=== PATIENT | female | born 2000 | race Two or more races ===

== ENCOUNTER 2024-10-18 11:42 | Observation (INO) | payer MEDICAID ==
[~2024-10-18] VITALS: Ht 157.5 cm; Wt 68.0 kg
[2024-10-18 12:32] LABS: Basophils # (auto) 0 10 ^3/uL (0-0.2); Basophils % (auto) 0.2 % (0.0-2.0); Eosinophils # (auto) 0.1 10 ^3/uL (0-0.8); Hematocrit 36.7 % (36.0-46.0); Hemoglobin 12.9 g/dL (12.2-16.2); Lymphocytes % (auto) 20.8 % (10.0-50.0); Mean Corpuscular Hemoglobin 31.8 pg (28.0-32.0); Mean Corpuscular Hgb Conc. 35.2 g/dL (32.0-36.0); Mean Corpuscular Volume 90.4 fL (80.0-100.0); Monocytes # (auto) 0.7 10 ^3/uL (0-1.3); Monocytes % (auto) 6.8 % (0.0-12.0); Neutrophils % (auto) 71.2 % (37.0-80.0); Platelet Count (auto) 201 10^3/uL (140-450); Red Blood Cells 4.06 10^6/uL (4.0-5.20); Red Cell Distribution Width 13.8 % (11.8-14.3); White Blood Cell 9.8 10^3/uL (4.4-10.8)
--- NOTE | 2024-10-18 12:33 | DVH ---
Procedure: US BIOPHYSICAL PROFILE 10/18/2024 12:15 PM Indication: cholestasis Comparison: None Technique: Sonogram of gravid uterus utilizing grayscale and color techniques. FINDINGS: Single living intrauterine gestation. Presentation: Cephalic Placenta: Anterior, no previa or abruption heart rate: 149 bpm SAHIL: 11.2 cm, DVP: 4.4 cm Maternal cervix: Not visualized Biophysical Profile: breathing score: 2 movement score: 2 tone: 2 Quantitative SAHIL score: 2 Total score: 8/8 IMPRESSION: 1. Single living as above. 2. Biophysical profile score: 8/8.
[2024-10-18 12:43] LABS: Urine Bacteria FEW /hpf (None Seen); Urine Blood Negative /uL (Negative); Urine Clarity Turbid (Clear); Urine Color Light-Yellow (Yellow); Urine Protein, UAD Negative (Negative); Urine Specific Gravity 1.007 (1.001-1.035); Urine Urobilinogen Normal (Negative); Urine WBC 2 /hpf (0 - 5); Urine pH 5.5 (5.0-9.0)
[2024-10-18 12:45] LABS: Albumin 3.9 g/dL (3.2-4.8); Alkaline Phosphatase 149 U/L (46-116); Anion Gap 9 (5-15); Aspartate Aminotransferase 15 U/L (13-40); BUN/Creatinine Ratio 11.9 (10.0-20.0); Blood Urea Nitrogen 7 mg/dL (9-23); Calcium 9.7 mg/dL (8.7-10.4); Carbon Dioxide 21 mmol/L (20-31); Chloride 110 mmol/L (98-107); Glucose 76 mg/dL (74-106); Potassium 3.6 mmol/L (3.5-5.1); Sodium 140 mmol/L (136-145)
[2024-10-18 12:46] LABS: Bilirubin, Total 0.6 mg/dL (0.2-1.0); Total Protein 6.1 g/dL (5.7-8.2)
[2024-10-18 13:12] LABS: Alanine Aminotransferase 20 U/L (7-40)
--- NOTE | 2024-10-18 18:58 | DVHDS2 ---
Physician Discharge Progress N Final Diagnosis: polymorphic eruption of (PEP) Operations or Procedures: Operations or Procedures 24yo IUP@34.3wks, pt sent from Dr. El's office with c/o itching from chest down (torso to BLE). Denies itching in palms of hands and soles of feet. PNC with Dr. El, uncomplicated. +FM, denies UCs/LOF/VB. Pt reports only drinking coffee today. VSS UA wnl NST reactive TOCO: uterine irritability noted PO hydrated BPP wnl Bile acids ordered FKC/PTL precautions reviewed. Use hydrocortisone cream for itching Dr. El consulted, agrees with POC. f/[facility] Laboratory Tests Test 10/18/24 11:45 10/18/24 12:11 Range/Units Urine Color Light-yellow Yellow Urine Clarity Turbid H Clear Urine pH 5.5 5.0-9.0 Urine Specific [place] 1.007 1.001-1.035 Urine Protein Negative Negative Urine Ketones Negative Negative Urine Blood Negative Negative /uL Urine Nitrite Negative Negative Urine Bilirubin Negative Negative Urine Urobilinogen Normal Negative mg/dL Urine Leukocyte Esterase 1+ Negative /uL Urine RBC 3 0 - 4 /hpf Urine WBC 2 0 - 5 /hpf Urine Squamous Epithelial Cells Few <5 /hpf Urine Bacteria Few H None Seen /hpf Urine Glucose Normal Normal mg/dL White Blood Count 9.8 4.4-10.8 10^3/uL Red Blood Count 4.06 4.0-5.20 10^6/uL Hemoglobin 12.9 12.2-16.2 g/dL Hematocrit 36.7 36.0-46.0 % Mean Corpuscular Volume 90.4 80.0-100.0 fL Mean Corpuscular Hemoglobin 31.8 28.0-32.0 pg Mean Corpuscular Hemoglobin Concent 35.2 32.0-36.0 g/dL Red Cell Distribution Width 13.8 11.8-14.3 % Platelet Count 201 140-450 10^3/uL Mean Platelet Volume 7.7 6.9-10.8 fL Neutrophils (%) (Auto) 71.2 37.0-80.0 % Lymphocytes (%) (Auto) 20.8 10.0-50.0 % Monocytes (%) (Auto) 6.8 0.0-12.0 % Eosinophils (%) (Auto) 1.0 0.0-7.0 % Basophils (%) (Auto) 0.2 0.0-2.0 % Neutrophils # (Auto) 7.0 1.6-8.6 10 ^3/uL Lymphocytes # (Auto) 2.0 0.4-5.4 10 ^3/uL Monocytes # (Auto) 0.7 0-1.3 10 ^3/uL Eosinophils # (Auto) 0.1 0-0.8 10 ^3/uL Basophils # (Auto) 0 0-0.2 10 ^3/uL Nucleated Red Blood Cells 0.0 % Miscellaneous Referred Test (Refrg) Sent to [facility] Sodium Level 140 136-145 mmol/L Potassium Level 3.6 3.5-5.1 mmol/L Chloride Level 110 H 98-107 mmol/L Carbon Dioxide Level 21 20-31 mmol/L Anion Gap 9 5-15 Blood Urea Nitrogen 7 L 9-23 mg/dL Creatinine 0.59 0.550-1.02 mg/dL Glomerular Filtration Rate Calc 128 >90 mL/min BUN/Creatinine Ratio 11.9 10.0-20.0 Serum Glucose 76 74-106 mg/dL Calcium Level 9.7 8.7-10.4 mg/dL Total Bilirubin 0.6 0.2-1.0 mg/dL Aspartate Amino Transferase (AST) 15 13-40 U/L Alanine Aminotransferase (ALT) 20 7-40 U/L Alkaline Phosphatase 149 H 46-116 U/L Total Protein 6.1 5.7-8.2 g/dL Albumin 3.9 3.2-4.8 g/dL Condition on Discharge: Stable Disposition: Home Discharge Instructions: Diet: Regular Activity: No Restrictions, As Tolerated Medications: see med list Follow Up Care: Specialist: f/[facility] Discharge Statement: "Patient was advised to return to the ER or call 911 if any headaches, dizziness, shortness of breath, chest pain, abdominal pain, bleeding, fevers, or worsening of medical condition. Patient was counseled about treatment plan, medications, possible side effects, patientverbalized understanding. All questions were answered to the best of my ability. This discharge took greater then 30 minutes in planning, reviewing documentation, counseling the patient, and discussing with other team members." PEREZ JOHNS [facility] Oct 18, 2024 18:58
== END 2024-10-18 13:18 | disposition home or self-care (01) ==
LOC: UNDOADMOB 11:42 → LDRP 11:42 → UNDODISOB 13:18
PROVIDERS: ADMIT Obstetrics & Gynecology; ATTEND Obstetrics & Gynecology
DX: O26.893 Other specified pregnancy related conditions, third trimester (principal); L29.9 Pruritus, unspecified; Z3A.34 34 weeks gestation of pregnancy
CPT/HCPCS: 36415; 59025; 76818; 80053; 81001; 81002; 85025; 94760; G0378

== ENCOUNTER 2024-10-25 12:38 | Observation (INO) | payer MEDICAID ==
[~2024-10-25] VITALS: Ht 162.6 cm; Wt 63.5 kg
--- NOTE | 2024-10-25 13:58 | DVH ---
BIOPHYSICAL PROFILE HISTORY: R/O mohan TECHNIQUE: Multiple transabdominal real-time grayscale sonographic images through the gravid uterus of the fetus with duplex Doppler color flow and M-mode spectral analysis FINDINGS: BIOPHYSICAL PROFILE: breathing score: 2 movement score: 2 tone score: 2 Quantitative SAHIL score: 2 (SAHIL: 10.7 Cm.) Total score: 8/8 Single live fetus in cephalic presentation. heart rate 130 beats per minute. Anterior placenta without previa or abruption IMPRESSION: 1. Biophysical profile score: 8/8 HS:Y
[2024-10-25] MEDS ORDERED: LACTATED RINGER'S 1,000 ML IV ONE (14:15)
[2024-10-25] MEDS ORDERED: NIFEdipine ER 30 MG TAB PO ONE (15:00)
[2024-10-25] MEDS: BETAMETHASONE ACET (30mg/5ml) 5ml Vial 6mg/ml IM ONE (15:28)
[2024-10-25] MEDS: TERBUTALINE SULFATE 1 MG/ML 1ML VIAL SC SCH (15:48)
[2024-10-25] MEDS ORDERED: NIFE10CA52 PO (16:16)
--- NOTE | 2024-10-25 19:34 | DVHDS2 ---
Physician Discharge Progress N Final Diagnosis: PTL Secondary Diagnosis: ruled out for cholestasis Operations or Procedures: Operations or Procedures S: 24yo IUP@35.3wks here for testing. Denies UCs/LOF/VB/BEDOLLA/vision changes/RUQ pain. Endorses +FM. Pt denies itching after switching laundry detergent from last week. O: VSS NST reactive TOCO: regular UCs initially that resolved with treatment Treated PTL with terbutaline SQ x2 and 1L LR IV bolus Betamethasone IM first dose given BPP wnl BIle acid labs reviewed, WNL Labs reviewed from last visit A: 24yo IUP@35.3wks PTL Ruled out for cholestasis P: FKC/PTL precautions reviewed Dr. El consulted, agrees with POC. Rx sent for procardia for pt to take until 36 wks. Condition on Discharge: Stable Disposition: Home Discharge Instructions: Diet: Regular Activity: No Restrictions, As Tolerated Medications: see med list Follow Up Care: Specialist: f/u on 10/26/24 Discharge Statement: "Patient was advised to return to the ER or call 911 if any headaches, dizziness, shortness of breath, chest pain, abdominal pain, bleeding, fevers, or worsening of medical condition. Patient was counseled about treatment plan, medications, possible side effects, patientverbalized understanding. All questions were answered to the best of my ability. This discharge took greater then 30 minutes in planning, reviewing documentation, counseling the patient, and discussing with other team members." PEREZ JOHNS CNM Oct 25, 2024 19:34
[2024-10-26] MEDS ORDERED: PREN-96 PO (16:03)
== END 2024-10-25 17:10 | disposition home or self-care (01) ==
LOC: LDRP 13:00
PROVIDERS: ADMIT Obstetrics & Gynecology; ATTEND Obstetrics & Gynecology
CPT/HCPCS: 59025 ×2; 76818 ×2; 81002 ×2; 94760 ×2; 96360 ×2; 96372 ×2; G0378; J0702; J3105

== ENCOUNTER 2024-10-26 15:13 | Observation (INO) | payer MEDICAID ==
[~2024-10-26] VITALS: Ht 157.5 cm; Wt 68.0 kg
[~2024-10-26 15:13] MED LIST: NIFE10CA52 PO
[2024-10-26] MEDS: BETAMETHASONE ACET (30mg/5ml) 5ml Vial 6mg/ml IM ONE (15:49)
[2024-10-26] MEDS ORDERED: PREN-96 PO (16:03)
--- NOTE | 2024-10-26 17:15 | DVHDS2 ---
Physician Discharge Progress N Final Diagnosis: second dose of betamethasone and NST for PTL Operations or Procedures: Operations or Procedures 24yo IUP@35.5wks presents for second dose of betamethasone, denies UCs/VB/LOF, +FM. taking procardia. VSS UA wnl NST reactive last 20 min (FHR 140, moderate variability, +accels, -decels) Second Dose of Betamethasone IM given FKC/PTL precautions given Dr. El consulted, agrees with POC. Condition on Discharge: Stable Disposition: Home Discharge Instructions: Diet: Regular Activity: Light activity Activity comment: pelvic rest Medications: see med list Follow Up Care: Specialist: f/u in 1 wk Discharge Statement: "Patient was advised to return to the ER or call 911 if any headaches, dizziness, shortness of breath, chest pain, abdominal pain, bleeding, fevers, or worsening of medical condition. Patient was counseled about treatment plan, medications, possible side effects, patientverbalized understanding. All questions were answered to the best of my ability. This discharge took greater then 30 minutes in planning, reviewing documentation, counseling the patient, and discussing with other team members." PEREZ JOHNS CNM Oct 26, 2024 17:15
== END 2024-10-26 15:40 | disposition home or self-care (01) ==
LOC: LDRP 15:13
PROVIDERS: ADMIT Obstetrics & Gynecology; ATTEND Obstetrics & Gynecology
DX: O60.03 Preterm labor without delivery, third trimester (principal); Z3A.35 35 weeks gestation of pregnancy; Z79.899 Other long term (current) drug therapy
CPT/HCPCS: 59025; 81002; 96372; G0378

== ENCOUNTER 2024-11-01 11:12 | Observation (INO) | payer MEDICAID ==
[~2024-11-01 11:12] MED LIST changes: +PREN-96 PO
--- NOTE | 2024-11-01 14:57 | DVHDS2 ---
Physician Discharge Progress N Final Diagnosis: NST for PTL Operations or Procedures: Operations or Procedures 24yo IUP@36.4wks, stopped procardia at 36wks VSS UA wnl NST reactive FKC/PTL precautions reviewed Condition on Discharge: Stable Disposition: Home Discharge Instructions: Diet: Regular Activity: No Restrictions, As Tolerated Medications: see med list Follow Up Care: Specialist: f/u with primary OB as scheduled Discharge Statement: "Patient was advised to return to the ER or call 911 if any headaches, dizziness, shortness of breath, chest pain, abdominal pain, bleeding, fevers, or worsening of medical condition. Patient was counseled about treatment plan, medications, possible side effects, patientverbalized understanding. All questions were answered to the best of my ability. This discharge took greater then 30 minutes in planning, reviewing documentation, counseling the patient, and discussing with other team members." PEREZ JOHNS CNM Nov 01, 2024 14:57
== END 2024-11-01 12:44 | disposition home or self-care (01) ==
LOC: LDRP 11:12 → UNDOADMOB 11:12 → LDRP 11:26 → UNDODISOB 12:44
PROVIDERS: ADMIT Obstetrics & Gynecology; ATTEND Obstetrics & Gynecology
DX: O60.03 Preterm labor without delivery, third trimester (principal); O26.893 Other specified pregnancy related conditions, third trimester; N89.8 Other specified noninflammatory disorders of vagina; Z3A.36 36 weeks gestation of pregnancy; Z79.899 Other long term (current) drug therapy
CPT/HCPCS: 59025; 81002; 94760; G0378

== ENCOUNTER 2024-11-24 23:17 | Inpatient (IN) | payer MEDICAID ==
[~2024-11-24] VITALS: Ht 157.5 cm; Wt 72.6 kg
[2024-11-25] VITALS (8 sets, daily range): BP systolic 126–140; BP diastolic 53–85; PULSE 92–106; RESP 18; O2SAT 95–100
--- NOTE | 2024-11-25 01:32 | DVH ---
OB ULTRASOUND, LIMITED CLINICAL INDICATION: POST DATES TECHNIQUE: Multiple grayscale ultrasound and M-mode images were obtained of the pelvis for evaluation of intrauterine . COMPARISON: US BIOPHYSICAL PROFILE on DOS: 10/25/24, US BIOPHYSICAL PROFILE on DOS: 10/18/24 FINDINGS: Biophysical profile: 07/07 breathin movements: 2 tone: 2 Amniotic fluid: 2 ( SAHIL 14.7 cm) heart rate: 153 beats per minute position: Cephalic Placenta location anterior IMPRESSION: Biophysical profile 07/07
--- NOTE | 2024-11-25 01:43 | DVHDS2 ---
PEREZ JOHNS [facility] Nov 25, 2024 01:43
[2024-11-25] MEDS ORDERED: miSOPROStol 50 MCG per PRE-CUT 1/2 TAB PO PRN (03:30)
[2024-11-25] MEDS ORDERED: LIDOCAINE 2%HCL (LOCAL ANESTH.) INJ 20ML MDV IJ PRN (03:30)
[2024-11-25] MEDS ORDERED: NALBUPHINE HCL 10 MG/1ml INJECTION IV PRN (03:30)
[2024-11-25 04:17] LABS: Alanine Aminotransferase 27 U/L (7-40); Albumin 3.9 g/dL (3.2-4.8); Anion Gap 11 (5-15); Aspartate Aminotransferase 25 U/L (13-40); BUN/Creatinine Ratio 12.7 (10.0-20.0); Blood Urea Nitrogen 9 mg/dL (9-23); Calcium 9.9 mg/dL (8.7-10.4); Carbon Dioxide 20 mmol/L (20-31); Potassium 3.5 mmol/L (3.5-5.1); Sodium 138 mmol/L (136-145)
[2024-11-25 04:18] LABS: Bilirubin, Total 0.8 mg/dL (0.2-1.0); Total Protein 6.2 g/dL (5.7-8.2)
[2024-11-25 04:31] LABS: Basophils # (auto) 0 10 ^3/uL (0-0.2); Basophils % (auto) 0.3 % (0.0-2.0); Eosinophils # (auto) 0.1 10 ^3/uL (0-0.8); Eosinophils % (auto) 0.5 % (0.0-7.0); Hematocrit 41.7 % (36.0-46.0); Hemoglobin 14.3 g/dL (12.2-16.2); Lymphocytes # (auto) 2.4 10 ^3/uL (0.4-5.4); Mean Corpuscular Hemoglobin 31.6 pg (28.0-32.0); Mean Corpuscular Hgb Conc. 34.3 g/dL (32.0-36.0); Mean Corpuscular Volume 92.3 fL (80.0-100.0); Monocytes # (auto) 0.6 10 ^3/uL (0-1.3); Neutrophils # (auto) 8.5 10 ^3/uL (1.6-8.6); Neutrophils % (auto) 73.2 % (37.0-80.0); Nucleated Red Blood Cells % 0.1 %; Platelet Count (auto) 207 10^3/uL (140-450); Red Blood Cells 4.52 10^6/uL (4.0-5.20); Red Cell Distribution Width 15.1 % (11.8-14.3); White Blood Cell 11.6 10^3/uL (4.4-10.8)
[2024-11-25 04:35] LABS: Alkaline Phosphatase 230 U/L (46-116); Chloride 107 mmol/L (98-107); Glucose 128 mg/dL (74-106)
[2024-11-25] MEDS: LACT. RINGERS/OXYTOCIN 20UNITS 500 ML IV ONE ×2 (04:45→05:15)
[2024-11-25 05:08] LABS: INR 0.97 (0.9-1.15); Partial Thromboplastin Time 28.5 SEC (24.5-34.5); Prothrombin Time 10.3 sec (9.3-11.8)
[2024-11-25] MEDS: LACTATED RINGER'S 1,000 ML IV SCH (05:12)
[2024-11-25] MEDS: PHISODERM TOP SOLN 240ML BTL TOP PRN (05:17)
[2024-11-25] MEDS: DERMOPLAST 60ML BOTTLE TOP PRN (05:20)
[2024-11-25] MEDS: WITCH HAZEL-GLYCERIN PAD TOP PRN (05:21)
[2024-11-25 05:29] LABS: Urine Amorphous Crystal FEW /hpf (None Seen); Urine Bacteria FEW /hpf (None Seen); Urine Blood 1+ /uL (Negative); Urine Clarity Clear (Clear); Urine Color Colorless (Yellow); Urine Protein, UAD Negative (Negative); Urine Specific Gravity 1.004 (1.001-1.035); Urine Squamous Epithelial Cell FEW /hpf (<5); Urine Urobilinogen Normal (Negative); Urine WBC 5 /hpf (0 - 5); Urine pH 5.5 (5.0-9.0)
[2024-11-25] MEDS: LIDOCAINE HCL 2 %PF INJ 10ML AMP IJ ONE (06:00)
[2024-11-25] MEDS: GUM (CHEWING) 1 GUM CHEW CHEW ONE (06:00)
[2024-11-25 06:03] LABS: Amphetamine Screen, Urine Neg (NEGATIVE); Barbiturate Scree,Urine Neg (NEGATIVE); Benzodiazephine Screen, Urine Neg (NEGATIVE); Cannabinoid Screen, Urine Neg (NEGATIVE); Cocaine Screen, Urine Neg (NEGATIVE); Opiate Scree,Urine Neg (NEGATIVE); Phencyclidine Screen, Urine Neg (NEGATIVE)
[2024-11-25] MEDS ORDERED: SODIUM CHLORIDE 0.9% 500 ML IV PRN (07:00)
[2024-11-25] MEDS ORDERED: LIDOCAINE HCL 2 %PF INJ 10ML AMP IJ ONE (07:00)
[2024-11-25] MEDS ORDERED: LACTATED RINGER'S 500 ML IV ONE (07:00)
[2024-11-25] MEDS ORDERED: LIDOCAINE 1%-Mpf/Epinephrine 1:200,000 30ml VIAL IJ ONE (07:00)
[2024-11-25] MEDS ORDERED: LIDOCAINE 2%HCL (LOCAL ANESTH.) INJ 10ml MDV IJ ONE (07:00)
[2024-11-25] MEDS ORDERED: NALOXONE HCL 0.4 MG/ML VIAL IV ONE (07:00)
[2024-11-25] MEDS ORDERED: ePHEDrine SULFATE 50 MG/ML AMP IV ONE (07:00)
[2024-11-25] MEDS ORDERED: Lidocaine W-Epinephrine 1.5%-1:200,000 INJ 10ml Vial IJ ONE (07:00)
--- NOTE | 2024-11-25 08:15 | DVHHP2 ---
OB CC & HPI Date Date of Admission: Nov 25, 2024 Patient Identification: : 1 Para: 0 EDC: Nov 25, 2024 EGA: 40wks Chief Complaints: Reason for admission: active labor Admission Nurse Assessment Rev: No History of Present Complaints pt is admitted for active labor,no rom or vag bleeding Past Medical History Cardiac: No pertinent Hx Pulmonary: No pertinent Hx Central Nervous System: No pertinent Hx GI: No pertinent Hx Hemotology/Oncology: No pertinent Hx Hepatobiliary: No pertinent Hx Psychiatric: No pertinent Hx Musculoskeletal: No pertinent Hx Rheumotologic: No pertinent Hx Infectious Disease: No peritnent Hx ENT: No pertinent Hx Renal/: No pertinent Hx Endocrine: No pertinent Hx Dermatology: No pertinent Hx Past Surgical History: No pertinent Hx OB History OB History Care: Good Care Ultrasounds: Normal mid trimester US Obstetrical Complications: None Medical Complications: None Allergies: Coded Allergies: NO KNOWN ALLERGIES (Unverified , 10/18/24) Home Meds Active Scripts Nifedipine (PROCARDIA CAPSULE) 10 Mg Cp, 10 MG PO Q6HR for 4 Days, #24 CAP take until [address] El Prov:PEREZ JOHNS CNM 10/25/24 Reported Medications Vit W/ Ferrous Fumara ( One Daily) Daily Tab, 1 TAB PO DAILY, #90 TAB 3 Refills 10/26/24 Current Medications Current Medications Medications (Trade) Dose Ordered Sig/Maldonado Route PRN Reason Start Time Stop Time Status Last Admin Lactated Ringer's 1,000 ml @ 125 mls/hr Q8H IV 11/25/24 03:30 11/25/24 05:12 Nalbuphine HCl (Nubain) 10 mg Q4HP PRN IV MODERATE PAIN (4-6 PAIN SCALE) 11/25/24 03:30 Witch Annette (Tucks) 1 pad PRN PRN TOP PERINEAL AREA DISCOMFORT 11/25/24 03:30 11/25/24 05:21 Sodium Lauryl Sulfate (Phisoderm) 240 ml PRN PRN TOP PERINEAL AREA DISCOMFORT 11/25/24 03:30 11/25/24 05:17 Benzocaine (Dermoplast) 1 applic PRN PRN TOP PERINEAL AREA DISCOMFORT 11/25/24 03:30 11/25/24 05:20 Misoprostol (Cytotec) 50 mcg Q4HPRN PRN PO CERVICAL RIPENING 11/25/24 03:30 Lidocaine HCl (Xylocaine) 40 ml ONCE PRN IJ PERINEAL AREA DISCOMFORT 11/25/24 03:30 Sodium Chloride 500 ml @ 500 mls/hr Q1H PRN IV FOR BP LESS THAN 90 11/25/24 07:00 Family & Social History Family/Social History Blood Type: Unknown Rubella: unknown RPR/VDRL: Negative GBS Status: Negative HBsAG: Negative Review of Systems Constitutional: No symptom reported Ears, Nose, & Throat: No symptom reported Eyes: No symptom reported Pulmonary/Respiratory: No symptom reported Cardiovascular: No symptom reported Gastrointestinal: No symptom reported Genitourinary: No symptom reported Musculoskeletal: No symptom reported Skin: No symptom reported Psychiatric: No symptom reported Endocrine: No symptom reported Hemotologic/Lymphatic: No symptom reported OB Admission Exam Physical Exam HEENT: TMs Normal, Fontanelles Normal, Nasal Mucosa Normal, Eyes non-injected, Oropharynx Normal, PERRLA, Moist Membranes, EOMI Heart: Rhythm Normal Lungs: Clear Abdomen: Non tender Extremities: Normal Reflexes: Normal Cervical Dilatation: 3cm Effacement: 75% Station: -2 Membranes: Intact Heart Rate: 130's Accelerations: Accelerations Present Decelerations: No Decelerations Short Term Variability: Present Banking Services Clerk Variability: Average (6-25) Contractions on Admission: < 5 Minutes Apart Intensity: Moderate OB Plan Plan Admitting Diagnosis: labor Plan: Expectant Management Other Plan: hurley ballon placed epidural given supportive care QIANA EL DO Nov 25, 2024 08:15
[2024-11-25] MEDS: ROPIVACAINE HCL ONE (09:43)
[2024-11-25] MEDS ORDERED: LACT. RINGERS/OXYTOCIN 20UNITS 1,000 ML IV SCH (13:30)
[2024-11-25] MEDS ORDERED: DOCU-94 PO (14:27)
[2024-11-25] MEDS ORDERED: IBUP-1456 PO (14:27)
[2024-11-25] MEDS ORDERED: HYDR-4072 PO (14:27)
[2024-11-25] MEDS ORDERED: LACTATED RINGER'S 1,000 ML IV SCH (14:45)
[2024-11-25] MEDS ORDERED: LACT. RINGERS/OXYTOCIN 20UNITS 1,000 ML IV ONE (15:00)
[2024-11-25] MEDS ORDERED: ceFAZolin 1GM/50ML 50 ML IV SCH (15:00)
[2024-11-25] MEDS ORDERED: ONDANSETRON HCL 4 MG/2 ML VIAL IV PRN ×2 (15:00→16:45)
[2024-11-25] MEDS ORDERED: MORPHINE SULF PF 5 MG/10 ML VIAL ONE (15:15)
[2024-11-25] MEDS ORDERED: fentaNYL CITRATE 100 MCG/2 ML VL ONE (15:15)
[2024-11-25] MEDS ORDERED: MIDAZOLAM HCL 2MG/2ML 2ml VIAL (1mg/ml) ONE (15:16)
--- NOTE | 2024-11-25 15:29 | DVHHP ---
ADMIT DATE: 11/25/2024 CHIEF COMPLAINT: Nonreassuring heart tracing. HISTORY OF PRESENT ILLNESS: The patient is a 24-year-old 1, para 0 with EDC 11/25/2024, estimated gestational age of 40 weeks, admitted for labor. The patient progressed on her own to 3 cm, received epidural. I placed a Reed balloon. However, the NST remained nonreassuring. No accels, no variability. The patient is remote from delivery. Subsequently, decision was made to proceed with primary . All options discussed with the patient. The patient fully understands and wishes to proceed with a primary . PAST MEDICAL HISTORY: None. PAST SURGICAL HISTORY: None. SOCIAL HISTORY: None. FAMILY HISTORY: None. OBSTETRIC AND GYNECOLOGIC HISTORY: Primigravid. REVIEW OF SYSTEMS: Consistent with HPI. PHYSICAL EXAMINATION: VITAL SIGNS: Stable, afebrile. HEENT: Within normal limits. CARDIOVASCULAR: Regular rate and rhythm. LUNGS: Clear to auscultation. BREASTS: Symmetrical. No masses. ABDOMEN: Gravid. Positive heart, estimated weight 7 pounds. PELVIC: 3 cm, 60%, -2. EXTREMITIES: No clubbing, cyanosis or edema. IMPRESSION: Intrauterine at 40 weeks with nonreassuring heart tracing. PLAN: Primary low transverse section. Informed consent obtained. Risks, complication of surgery including infection, bleeding, hematoma formation, injury to bowel, bladder, surrounding organs, possibility of DVT, pulmonary embolism, risk of anesthesia discussed with the patient. Options reviewed. All questions answered. The patient fully understands. She wishes to proceed with planned procedure. DO GRISELDA Camacho/KRAEN TID: [id number] RECEIPT: [id number]
[2024-11-25] MEDS: CARBOPROST TROMETHAMINE 250 MCG/1ML VIAL IM ONE (15:50)
--- NOTE | 2024-11-25 15:58 | DVHOP2 ---
Operative Report DATE OF OPERATION: 11/25/24 PREOPERATIVE DIAGNOSES: Term FAILED INDUCTION,NONREASSURING FHT ,FETUS AT RISK POSTOPERATIVE DIAGNOSES: SAME,OP,NUCHAL CORD,COMPOUND PRESENTATION SURGEON: Shey El D.O./ANTON ANESTHESIOLOGIST: DONNA TYPE OF ANESTHESIA : SPINAL CONSENT: The patient was informed of the risks and benefits of the procedure. The patient was informed of the risks and benefits of the procedure. These include but are not limited to , complications of anesthesia, postoperative infection, incomplete relief of symptoms, recurrence of symptoms, damage to b lood vessels, nerves and tendons, deep venous thrombosis, pulmonary embolism and possible need for repeat surgery in the future. FINDINGS: Baby [B] with Apgars of [8] and [9]. Grossly normal appearing tubes and ovaries.OP,NUCHAL CORD And compound presentation PROCEDURES: Primary low transverse section. PROCEDURE IN DETAIL: The patient was taken to the operating room. She already had an epidural in place. She was then placed in supine position with a leftward tilt. A Pfannenstiel skin incision was made 2 cm above the symphysis pubis. This incision was carried to the underlying layer of fascia. The fascia was nicked in the midline. The incision was extended laterally. The superior aspect of the fascial incision was grasped and elevated. The same procedure was done to the inferior aspect of the fascial incision. The rectus muscles were then in the midline. Peritoneum was identified and entered. Peritoneal incision was extended superiorly and inferiorly with good visualization of the bladder. Bladder blade was inserted. Vesicouterine peritoneum was identified and entered. Lower uterine segment was incised in a transverse fashion. The infant was delivered from vertex presentation. bbay was op with nuchal cord and compound presentation. was baby [b] with Apgars [8] and [9]. Placenta was then removed manually. Uterus was exteriorized and cleared of all clots and debris. The incision was repaired using 0 Vicryl in a double-layered fashion. No bleeding was noted. Uterus was then returned to the abdomen. The gutters were cleared off all clots and debris. Peritoneum was closed using 0 Vicryl, fascia was closed using 0 Maxon, and skin was closed using tanvi. The patient tolerated the procedure well. She was taken to the recovery room in stable condition. ESTIMATED BLOOD LOSS: Estimated blood loss was noted to be 800 mL. SHEY EL DO Nov 25, 2024 15:58
--- NOTE | 2024-11-25 16:01 | POSTOP ---
Post-Operative Note Post-Operative Note Preop Diagnosis iup at 40 wks with nonrassuring fht, Postop Diagnosis: same,op,nuchal cord ,cmpd presentation Operation performed pltcs Specimen baby girl,apgasr 8-9,op,nuchal cord Anesthesia: Regional Anesthesiologist: nuzhat Blood Loss(fluid mgmt) 800ml Surgeon Qiana El Director Epidemiology luis alberto Implant na Complications & Mgmt none Date 11/25/24 Time 15:59 QIANA EL DO Nov 25, 2024 16:01
[2024-11-25] MEDS: DIPHENOXYLATE W/ATROPINE 2.5 MG TAB ONE (16:33)
[2024-11-25] MEDS ORDERED: HYDROmorphone HCL 2 MG/ML VL/or syr IV PRN (16:45)
[2024-11-25] MEDS ORDERED: ONDANSETRON HCL 4 MG/2 ML VIAL IV ONE (16:45)
[2024-11-25] MEDS ORDERED: MIDAZOLAM HCL 2MG/2ML 2ml VIAL (1mg/ml) IV PRN (16:45)
[2024-11-25] MEDS ORDERED: NALOXONE HCL 0.4 MG/ML VIAL IV PRN (16:45)
[2024-11-25] MEDS ORDERED: ePHEDrine SULFATE 50 MG/ML AMP IV PRN (16:45)
[2024-11-25] MEDS ORDERED: hydrALAZINE HCL 20 MG/ML VL IV PRN (16:45)
[2024-11-25] MEDS ORDERED: DexAMETHasone SOD PHOS 10MG/1ML VIAL INJ IV PRN (16:45)
[2024-11-25] MEDS: ceFAZolin 2 GM/D5W50ml 50 ML IV ONE (17:52)
[2024-11-25] MEDS: ACETAMINOPHEN IV 1000 MG/100ML (10MG/ML) IV PRN (19:11)
[2024-11-25 22:09] LABS: Basophils # (auto) 0 10 ^3/uL (0-0.2); Basophils % (auto) 0.1 % (0.0-2.0); Eosinophils # (auto) 0 10 ^3/uL (0-0.8); Hematocrit 41.3 % (36.0-46.0); Hemoglobin 13.8 g/dL (12.2-16.2); Lymphocytes # (auto) 1.5 10 ^3/uL (0.4-5.4); Lymphocytes % (auto) 8.6 % (10.0-50.0); Mean Corpuscular Hemoglobin 31.1 pg (28.0-32.0); Mean Corpuscular Hgb Conc. 33.4 g/dL (32.0-36.0); Mean Corpuscular Volume 93.3 fL (80.0-100.0); Monocytes # (auto) 0.9 10 ^3/uL (0-1.3); Monocytes % (auto) 5.2 % (0.0-12.0); Neutrophils # (auto) 14.7 10 ^3/uL (1.6-8.6); Neutrophils % (auto) 86.1 % (37.0-80.0); Platelet Count (auto) 188 10^3/uL (140-450); Red Blood Cells 4.42 10^6/uL (4.0-5.20); Red Cell Distribution Width 15.2 % (11.8-14.3); White Blood Cell 17.1 10^3/uL (4.4-10.8)
[2024-11-26] VITALS (19 sets, daily range): BP systolic 108–139; BP diastolic 65–79; PULSE 74–103; RESP 16–18; TEMP 98–98.9; O2SAT 95–100
[2024-11-26] MEDS: ceFAZolin 1GM/50ML 50 ML IV SCH (01:47)
[2024-11-26] MEDS ORDERED: IBUP-1456 PO (02:01)
[2024-11-26] MEDS ORDERED: PREN-96 PO (02:01)
--- NOTE | 2024-11-26 03:45 | DVHPN2 ---
Progress Note Date Seen: Nov 26, 2024 Subjective S: bleeding is less, tolerating clear liquids, denies lightheaded/dizziness, pain well controlled with IV medications, hurley catheter in place, no flatus/BM yet, has not ambulated yet, vital signs Vital Sign Date Time Temp Pulse Resp B/P (MAP) Pulse Ox O2 Delivery O2 Flow Rate FiO2 11/25/24 23:00 92 133/67 (89) 96 11/25/24 18:54 Room Air 11/25/24 18:00 18 11/25/24 16:35 97.0 97.0 11/25/24 16:35 0 99 Total Intake and Output 11/25/24 11/25/24 11/26/24 15:00 23:00 07:00 Output Total 1000 ml 2000 ml Balance -1000 ml -2000 ml medications Current Medications Medications Dose Ordered Sig/Maldonado Route Start Time Stop Time Status Last Admin Dose Admin Lactated Ringer's 1,000 ml @ 125 mls/hr Q8H IV 11/25/24 03:30 11/26/24 01:48 125 MLS/HR Carolynch Annette 1 pad PRN PRN TOP 11/25/24 03:30 11/25/24 05:21 1 PAD Sodium Lauryl Sulfate 240 ml PRN PRN TOP 11/25/24 03:30 11/25/24 05:17 240 ML Benzocaine 1 applic PRN PRN TOP 11/25/24 03:30 11/25/24 05:20 1 APPLIC Lidocaine HCl 40 ml ONCE PRN IJ 11/25/24 03:30 Cancel Sodium Chloride 500 ml @ 500 mls/hr Q1H PRN IV 11/25/24 07:00 Lactated Ringer's 1,000 ml @ 125 mls/hr Q8H IV 11/25/24 14:45 Diphenhydramine HCl 25 mg Q4HP PRN IV 11/25/24 16:45 Ondansetron HCl 4 mg Q4HP PRN IV 11/25/24 16:45 Acetaminophen 1,000 mg Q8HR PRN IV 11/25/24 18:45 11/26/24 14:01 11/25/24 19:11 1,000 MG Cefazolin Sodium 50 ml @ 100 mls/hr Q8H IV 11/26/24 02:00 11/26/24 01:47 100 MLS/HR Ketorolac Tromethamine 30 mg Q6HPRN PRN IV 11/26/24 03:30 12/01/24 03:29 laboratory and microbiology Laboratory Tests 11/25/24 21:49 11/25/24 03:43 Test 11/25/24 03:43 Range/Units Serum Glucose 128 H 74-106 mg/dL Objective O: VSS Chest: heart sounds normal and lung sounds clear bilaterally Abd: soft, non-tender, fundus at U/firm/midline, active bowel sounds, no rebound or guarding Incision: sylke dressing open to air, clean/dry/intact Ext: Non-tender, No edema, 2+ BLE DTRs Lochia: minimal See lab results Problems(with codes): (1) S/P primary low transverse Assessment/Plan A/P: 24yo now POD#1 s/p primary -Continue routine post-op PP care -RN to D/C hurley and ambulate pt -Regular diet in AM Plan discussed with: Patient PEREZ JOHNS CNM Nov 26, 2024 03:45
[2024-11-26 05:07] LABS: RPR Non Reactive (Non Reactive)
[2024-11-26] MEDS: diphenhdrAMINE HCL 50 MG/1 ML VL IV PRN (07:20)
[2024-11-26 08:00] LABS: Basophils # (auto) 0 10 ^3/uL (0-0.2); Basophils % (auto) 0.2 % (0.0-2.0); Eosinophils # (auto) 0.1 10 ^3/uL (0-0.8); Eosinophils % (auto) 0.5 % (0.0-7.0); Hematocrit 37.8 % (36.0-46.0); Hemoglobin 12.8 g/dL (12.2-16.2); Lymphocytes % (auto) 13.5 % (10.0-50.0); Mean Corpuscular Hemoglobin 31.4 pg (28.0-32.0); Mean Corpuscular Hgb Conc. 33.8 g/dL (32.0-36.0); Monocytes # (auto) 0.9 10 ^3/uL (0-1.3); Monocytes % (auto) 6.2 % (0.0-12.0); Neutrophils # (auto) 11.9 10 ^3/uL (1.6-8.6); Neutrophils % (auto) 79.6 % (37.0-80.0); Platelet Count (auto) 175 10^3/uL (140-450); Red Blood Cells 4.07 10^6/uL (4.0-5.20); Red Cell Distribution Width 15.5 % (11.8-14.3)
[2024-11-26] MEDS: KETOROLAC TROMETH 30 MG/ML 1ML VIAL IV PRN (14:35)
[2024-11-26] MEDS ORDERED: HYDROcodone-ACET 5/325MG TAB PO PRN (16:30)
[2024-11-26] MEDS: SIMETHICONE 80 MG CHEWABLE TABLET PO SCH (18:38)
[2024-11-26] MEDS: HYDROcodone-ACET 5/325MG TAB PO PRN (19:42)
[2024-11-26] MEDS: DOCUSATE SOD 100 MG CAP PO SCH (22:01)
[2024-11-27] MEDS: IBUPROFEN 800 MG TAB PO PRN (01:14)
[2024-11-27 02:54] VITALS: BP 122/77; PULSE 85; RESP 20; TEMP 98.5; O2SAT 95
[2024-11-27 07:00] VITALS: BP 123/82; PULSE 91; RESP 16; TEMP 97.7; O2SAT 97
--- NOTE | 2024-11-27 07:38 | DVHPN2 ---
Chief Complaints Patient reports: No new complaints Nursing reports: No new complaints Objective Vitals Vital Signs Date Time Temp Pulse Resp B/P (MAP) Pulse Ox O2 Delivery O2 Flow Rate FiO2 11/27/24 02:54 98.5 85 20 122/77 (92) 95 98.5 11/26/24 19:00 Room Air 11/25/24 16:35 0 99 Medications Current Medications Medications (Trade) Dose Ordered Sig/Maldonado Route PRN Reason Start Time Stop Time Status Last Admin Acetaminophen/ Hydrocodone Bitart ([place] 5/325MG Tab) 1 tab Q4HPRN PRN PO FOR PAIN 1-6 11/26/24 16:30 11/27/24 05:36 Acetaminophen/ Hydrocodone Bitart ([place] 5/325MG Tab) 2 tab Q4HPRN PRN PO FOR PAIN 7-10 11/26/24 16:30 Dimethicone (Mylicon Tab) 80 mg QID PO 11/26/24 18:00 11/27/24 05:35 Docusate Calcium (Surfak Capsule) 240 mg DAILY PO 11/27/24 10:00 Docusate Sodium (Colace Capsule) 100 mg Q12HR PO 11/26/24 22:00 11/26/24 22:01 Ibuprofen (Motrin Tablet) 800 mg Q8HP PRN PO BREAKTHROUGH PAIN 11/26/24 16:30 11/27/24 01:14 General: Normal Lungs: Normal Cardiovascular: Normal Abdominal: Soft Extremities: Normal Studies Laboratory Tests 11/26/24 07:20 11/25/24 03:43 Test 11/25/24 03:43 Range/Units Serum Glucose 128 H 74-106 mg/dL Ass/Plan Assessment S/P PCS Plan DC HOME FU THIS THURSDAY QIANA REDDY DO Nov 27, 2024 07:38
--- NOTE | 2024-11-27 07:39 | DVHDS2 ---
Obstetrics Discharge Summary Obstetrics Discharge Summary Date of Admission: Nov 24, 2024 Date of Discharge: Nov 27, 2024 Reason For Admission: Induction of Labor Procedures: NST Intrapartum Procedures: (Low Cervical Transverse) Procedures: None Operative Complicat: None Discharge Diagnosis: Term -Delivered Discharge Information: Activity (Other), Diet (Routine), Medications (Name:), Instructions (Routine), Discharge to (Home), Discarge date (11-27) QIAAN REDDY DO Nov 27, 2024 07:39
[2024-11-27] MEDS ORDERED: DOCUSATE CALCIUM 240 MG CAP PO SCH (10:00)
[2024-11-27 12:06] LABS: Chlamydia Trachomatis, NAA Negative (Negative); Neisseria gonorrhoeae, NAA Negative (Negative)
== END 2024-11-27 11:12 | disposition home or self-care (01) | DRG 540 ==
LOC: LDRP 23:17 → OBSVTOIN 11-25 03:15 → LDRP 11-25 03:16
PROVIDERS: ADMIT Obstetrics & Gynecology; ATTEND Obstetrics & Gynecology
PROC: 10D00Z1 Extraction of Products of Conception, Low, Open Approach (ICD-10-PCS; principal; 2024-11-25 15:18)
DX: O32.6XX0 Maternal care for compound presentation, not applicable or unspecified (principal); O69.81X0 Labor and delivery complicated by cord around neck, without compression, not applicable or unspecified; Z3A.40 40 weeks gestation of pregnancy; Z37.0 Single live birth
CPT/HCPCS: 36415; 59025; 62282; 76818; 80053; 80307; 81001; 81002; 85025; 85610; 85730; 86592; 86780; 86803; 86850; 86900; 86901; 94760; 94762; 96360; 96361; 96374; 96375; C1726; G0378; J0131; J1885; J2250